=== PATIENT | female | born 1945 | race Caucasian/White ===

== ENCOUNTER → 2017-09-08 | Outpatient (CLI) | payer MEDICARE ==
[~2017-09-08] MED LIST: ALBU90OI61 INH; AMLO5 PO; ANTOXYBENA LEFTEAR; ASCO500 PO; ASPI81CH PO; ATEN100 PO; ATEN50 PO; Aspir-Low81 MG PO; Ativan1 MG PO; BUPR150ER PO; BUPR150ERA PO; CIPR500 PO; CITA20 PO; D3-20002000 UNIT PO; DOCU100 PO; ESTNOR PO; ESTR2 PO; FOLI400 PO; HYDMOR4 PO; HYDR1TAB94 PO; HYOS.125 SL; Hydrocodone-Ap1 EA23 PO; IBUP400 PO; IRON159 MG PO; LEVSOD100 PO; LIDO2L TOP; LORA.5 PO; MIRT15 PO; Nitrostat0.4 MG SL; OMEP20ER PO; OMEPRAZOLE MAGN20 MG PO; OXYB5ER PO; Therems-M1 EACH PO; Zithromax250 MG PO
== END ==
LOC: LAB SHORT 14:15
DX: N39.0 Urinary tract infection, site not specified (principal)
CPT/HCPCS: 87086

== ENCOUNTER 2017-09-23 12:46 | Day surgery (SDC) | payer MEDICARE ==
[~2017-09-23] VITALS: Ht 165.1 cm; Wt 69.7 kg
[~2017-09-23 12:46] MED LIST changes: -IRON159 MG PO; -MIRT15 PO
[2018-04-12] MEDS ORDERED: MIRT15 PO (15:27)
== END 2017-09-23 17:18 | disposition home or self-care (01) ==
LOC: ORSCSDS 12:46
PROVIDERS: Podiatrist
PROC: 0SNQ0ZZ Release Left Toe Phalangeal Joint, Open Approach (ICD-10-PCS; principal; 2017-09-23 14:15)
PROC: 0QSP04Z Reposition Left Metatarsal with Internal Fixation Device, Open Approach (ICD-10-PCS; principal; 2017-09-23 14:15)
DX: M20.12 Hallux valgus (acquired), left foot (principal); M20.42 Other hammer toe(s) (acquired), left foot; I10 Essential (primary) hypertension; I25.10 Atherosclerotic heart disease of native coronary artery without angina pectoris; E03.9 Hypothyroidism, unspecified; F17.210 Nicotine dependence, cigarettes, uncomplicated; Z79.899 Other long term (current) drug therapy; Z79.82 Long term (current) use of aspirin
CPT/HCPCS: C1713; J1100; J1885; J2250; J2405; J3010; J7120

== ENCOUNTER 2018-04-11 13:28 | Emergency (ER) | payer MEDICARE ==
[~2018-04-11] VITALS: Ht 162.6 cm; Wt 76.2 kg
[2018-04-11 14:32] LABS: Alanine Aminotransfer (ALT/SGP 13 U/L (12-78); Albumin, Blood 2.4 g/dL (3.4-5.0); Albumin/Globulin Ratio 0.8 (0.8-1.8); Alk Phos 42 U/L (50-136); Anion Gap 5 mmol/L (6-16); Aspartate Aminotrans (AST/SGOT 20 U/L (12-37); Bilirubin, Total 0.3 mg/dL (0.1-1.0); Blood Urea Nitrogen 17 mg/dL (8-24); Bun/Creatinine Ratio 17.6 (12.0-20.0); CO2, Blood 23 mmol/L (21-32); Calcium, Blood 6.9 mg/dL (8.5-10.1); Chloride, Blood 115 mmol/L (98-108); Creatinine, Blood 0.97 mg/dL (0.40-1.00); Globulin, Blood 3.1 g/dL (2.2-4.0); Glomerular Filtration Rate >60 (60-); Glucose, Blood 66 mg/dL (70-99); Potassium, Blood 4.3 mmol/L (3.5-5.5); Sodium, Blood 143 mmol/L (136-145); Total Protein, Blood 5.5 g/dL (6.4-8.2); Troponin I <0.015 ng/mL (0.000-0.040)
[2018-04-11 14:37] LABS: BASOPHILS ABSOLUTE AUTO 0.06 K/mm3 (0.00-0.23); BASOPHILS PERCENT AUTO 1 % (0-2); EOSINOPHILS ABSOLUTE AUTO 0.08 K/mm3 (0.00-0.68); EOSINOPHILS PERCENT AUTO 2 % (0-6); Hematocrit 26.5 % (33.0-51.0); Hemoglobin 8.3 g/dL (11.5-16.0); IMMATURE GRAN ABSOLUTE AUTO 0.01 K/mm3 (0.00-0.10); IMMATURE GRAN PERCENT AUTO 0 % (0-1); LYMPHOCYTES ABSOLUTE AUTO 1.69 K/mm3 (0.84-5.20); LYMPHOCYTES PERCENT AUTO 38 % (21-46); MONOCYTES ABSOLUTE AUTO 0.69 K/mm3 (0.16-1.47); MONOCYTES PERCENT AUTO 15 % (4-13); Mean Corpuscular HGB 26.3 pg (26.0-34.0); Mean Corpuscular HGB Conc 31.3 g/dL (31.5-36.5); Mean Corpuscular Volume 84 fL (80-100); Mean Platelet Volume 10.6 fL (9.1-12.4); NEUTROPHILS ABSOLUTE AUTO 1.96 K/mm3 (1.96-9.15); NEUTROPHILS PERCENT AUTO 44 % (41-73); Platelet Count 210 K/mm3 (150-400); RDW Coefficient Variation 16.4 % (11.7-14.2); RDW Standard Deviation 50.8 fL (35.1-46.3); Red Blood Cell Count 3.15 M/mm3 (3.80-5.20); White Blood Cell Count 4.49 K/mm3 (4.00-11.30)
[2018-04-11] MEDS ORDERED: IRON159 MG PO (15:15)
[2018-04-11 15:32] LABS: Percent Saturation 8.2 % (15.0-50.0)
[2018-04-12] MEDS ORDERED: MIRT15 PO (15:27)
== END 2018-04-11 15:44 | disposition home or self-care (01) ==
LOC: ER 13:28
PROVIDERS: Emergency Medicine
DX: D64.9 Anemia, unspecified (principal); I10 Essential (primary) hypertension; E03.9 Hypothyroidism, unspecified; J44.9 Chronic obstructive pulmonary disease, unspecified; F17.210 Nicotine dependence, cigarettes, uncomplicated; Z79.899 Other long term (current) drug therapy
CPT/HCPCS: 71046; 80053; 82272; 82607; 82728; 82746; 83540; 83550; 84484; 85025; 93005; 93010; 99284-25

== ENCOUNTER → 2018-08-10 | Outpatient (CLI) | payer MEDICARE ==
[~2018-08-10] MED LIST changes: +IRON159 MG PO; +MIRT15 PO
== END | disposition home or self-care (01) ==
LOC: LAB SRC 16:30 → LAB SHORT 16:30
DX: N39.0 Urinary tract infection, site not specified (principal)
CPT/HCPCS: 87086

== ENCOUNTER → 2018-10-10 | Outpatient (CLI) | payer MEDICARE | END | disposition home or self-care (01) | LOC: LAB SHORT 17:52 → LAB 17:52 | DX: R35.0 Frequency of micturition (principal); R30.9 Painful micturition, unspecified; M54.5 Low back pain | CPT/HCPCS: 87086 ==

== ENCOUNTER 2018-10-29 14:23 | Inpatient (IN) | payer MEDICARE ==
[~2018-10-29] VITALS: Ht 160 cm; Wt 68.7 kg
[2018-10-29 15:25] LABS: BASOPHILS ABSOLUTE AUTO 0.04 K/mm3 (0.00-0.23); BASOPHILS PERCENT AUTO 1 % (0-2); EOSINOPHILS ABSOLUTE AUTO 0.11 K/mm3 (0.00-0.68); EOSINOPHILS PERCENT AUTO 2 % (0-6); Hematocrit 36.2 % (33.0-51.0); Hemoglobin 11.6 g/dL (11.5-16.0); IMMATURE GRAN ABSOLUTE AUTO 0.01 K/mm3 (0.00-0.10); IMMATURE GRAN PERCENT AUTO 0 % (0-1); LYMPHOCYTES ABSOLUTE AUTO 1.17 K/mm3 (0.84-5.20); LYMPHOCYTES PERCENT AUTO 25 % (21-46); MONOCYTES ABSOLUTE AUTO 0.91 K/mm3 (0.16-1.47); MONOCYTES PERCENT AUTO 19 % (4-13); Mean Corpuscular HGB 29.9 pg (26.0-34.0); Mean Corpuscular Volume 93 fL (80-100); Mean Platelet Volume 9.8 fL (9.1-12.4); NEUTROPHILS ABSOLUTE AUTO 2.48 K/mm3 (1.96-9.15); NEUTROPHILS PERCENT AUTO 53 % (41-73); Platelet Count 226 K/mm3 (150-400); RDW Coefficient Variation 14.7 % (11.7-14.2); Red Blood Cell Count 3.88 M/mm3 (3.80-5.20); White Blood Cell Count 4.72 K/mm3 (4.00-11.30)
[2018-10-29 15:46] LABS: Alanine Aminotransfer (ALT/SGP 14 U/L (12-78); Albumin, Blood 3.2 g/dL (3.4-5.0); Albumin/Globulin Ratio 1.1 (0.8-1.8); Alk Phos 51 U/L (50-136); Anion Gap 3 mmol/L (6-16); Aspartate Aminotrans (AST/SGOT 10 U/L (12-37); Bilirubin, Total 0.3 mg/dL (0.1-1.0); Blood Urea Nitrogen 15 mg/dL (8-24); Bun/Creatinine Ratio 17.3 (12.0-20.0); CO2, Blood 29 mmol/L (21-32); Calcium, Blood 8.8 mg/dL (8.5-10.1); Chloride, Blood 104 mmol/L (98-108); Creatinine, Blood 0.87 mg/dL (0.40-1.00); Glomerular Filtration Rate >60 (60-); Glucose, Blood 82 mg/dL (70-99); Potassium, Blood 4.6 mmol/L (3.5-5.5); Sodium, Blood 136 mmol/L (136-145); Total Protein, Blood 6.2 g/dL (6.4-8.2)
[2018-10-29 15:57] LABS: Influenza A Negative (NEGATIVE); Influenza B Negative (NEGATIVE)
[2018-10-29] MEDS ORDERED: ALBU90OI6 INH (15:57)
[2018-10-29] MEDS ORDERED: Hydrocodone-Ap1 EA23 PO (15:57)
[2018-10-29] MEDS ORDERED: LAMO25 PO (15:58)
[2018-10-29] MEDS ORDERED: LORA.5 PO (15:58)
[2018-10-30 02:27] LABS: Adenovirus Not Detected (NOT DETECT); Bordetella pertussis Not Detected (NOT DETECT); Chlamydophila pneumoniae Not Detected (NOT DETECT); Coronavirus 229E Not Detected (NOT DETECT); Coronavirus HKU1 Not Detected (NOT DETECT); Coronavirus NL63 Not Detected (NOT DETECT); Coronavirus OC43 Not Detected (NOT DETECT); Human Metapneumovirus Detected (NOT DETECT); Human Rhinovirus/Enterovirus Not Detected (NOT DETECT); Influenza A Not Detected (NOT DETECT); Influenza A/2009-H1 Not Detected (NOT DETECT); Influenza A/H1 Not Detected (NOT DETECT); Influenza A/H3 Not Detected (NOT DETECT); Influenza B Not Detected (NOT DETECT); Mycoplasma pneumoniae Not Detected (NOT DETECT); Parainfluenza Virus 1 Not Detected (NOT DETECT); Parainfluenza Virus 2 Not Detected (NOT DETECT); Parainfluenza Virus 3 Not Detected (NOT DETECT); Parainfluenza Virus 4 Not Detected (NOT DETECT); Respiratory Syncytial Virus Not Detected (NOT DETECT)
--- NOTE | 2018-10-30 04:24 | NUR ---
NOC SHIFT SUMMARY PT WAS ATMITTED THIS NIGHT FOR ACUTE ON CHRONIC RESP FAILURE AND COPD EXACERBATION. SHE IS ALSO POSITIVE FOR HUMAN METAPNEUMOVIRUS. ON TELE, SR PER PHOTO LAB SPECIALIST. SHE HAS HAD SOME ACTIVITY INTOLERANCE WITH SOB WHICH RESOLVED WITH REST AND A BREATHING TREATMENT. HAD HEADACHE TREATED WITH TYLENOL AND NORCO. HEADACHE CONTINUED AND CALLED TO HOSPITALIST FOR ADDITIONAL MEDICATON, WAS RX'D TRAMADOL. PT CURRENTLY SLEEPING AND ROUSES EASILY TO VOICE. APPEARS IN NO ACUTE DISTRESS. WILL CONTINUE TO MONITOR.
[2018-10-30 04:50] LABS: BASOPHILS ABSOLUTE AUTO 0.01 K/mm3 (0.00-0.23); BASOPHILS PERCENT AUTO 0 % (0-2); EOSINOPHILS PERCENT AUTO 0 % (0-6); Hematocrit 36.3 % (33.0-51.0); Hemoglobin 11.7 g/dL (11.5-16.0); IMMATURE GRAN ABSOLUTE AUTO 0.02 K/mm3 (0.00-0.10); IMMATURE GRAN PERCENT AUTO 1 % (0-1); LYMPHOCYTES ABSOLUTE AUTO 0.49 K/mm3 (0.84-5.20); LYMPHOCYTES PERCENT AUTO 12 % (21-46); MONOCYTES ABSOLUTE AUTO 0.09 K/mm3 (0.16-1.47); MONOCYTES PERCENT AUTO 2 % (4-13); Mean Corpuscular HGB 29.6 pg (26.0-34.0); Mean Corpuscular HGB Conc 32.2 g/dL (31.5-36.5); Mean Corpuscular Volume 92 fL (80-100); Mean Platelet Volume 9.9 fL (9.1-12.4); NEUTROPHILS ABSOLUTE AUTO 3.42 K/mm3 (1.96-9.15); NEUTROPHILS PERCENT AUTO 85 % (41-73); Platelet Count 229 K/mm3 (150-400); RDW Coefficient Variation 14.5 % (11.7-14.2); RDW Standard Deviation 49.3 fL (35.1-46.3); Red Blood Cell Count 3.95 M/mm3 (3.80-5.20); White Blood Cell Count 4.03 K/mm3 (4.00-11.30)
[2018-10-30 05:14] LABS: Anion Gap 9 mmol/L (6-16); Blood Urea Nitrogen 16 mg/dL (8-24); Bun/Creatinine Ratio 21.3 (12.0-20.0); CO2, Blood 24 mmol/L (21-32); Calcium, Blood 8.6 mg/dL (8.5-10.1); Chloride, Blood 102 mmol/L (98-108); Creatinine, Blood 0.75 mg/dL (0.40-1.00); Glomerular Filtration Rate >60 (60-); Glucose, Blood 169 mg/dL (70-99); Potassium, Blood 4.4 mmol/L (3.5-5.5); Sodium, Blood 135 mmol/L (136-145)
[2018-10-30 05:17] LABS: Thyroid Stimulating Hormone 0.297 uIU/mL (0.360-4.800)
--- NOTE | 2018-10-30 07:35 | NUR ---
PT ISOLATION ORDER CHANGED PT PLACED IN DROPLET/CONTACT PRECAUTIONS. DID RESEARCH ON HUMAN METAPNEUMOVIRUS. PROVIDED HARDCOPY EDUCATION TO PT. SPREADS LIKE FLU/COLD VIRUS: COUGHING, SPUTUM, AIRBORNE. PT HAS BEEN CHANGED IN COMPUTER TO DROPLET ISOLATION OF 0730 HRS, CHARGE INFORMED
--- NOTE | 2018-10-30 10:50 | NUR ---
DR FLOOD ON PT HOSPITALIST ASSESSED PT AND ORDERED A HOME O2 EVALUATION FOR COPD/WHEEZING. POSSIBLE DISCHARGE TOMORROW MORNING. PT WHEEZING AND COUGH IS PRESENT. CALLED RESPIRATORY THERAPIST FOR A TX.
--- NOTE | 2018-10-30 19:14 | NUR ---
SHIFT SUMMARY 73 YR OLD FEMALE ADMITTED FOR HYPOXIA/RESPIRATORY FAILURE. FULL CODE. PT WOULD HAVE DC'D TODAY BUT THE HOSPITALIST FOUND HER TO BE WHEEZING. HE WILL LIKELY DC PT TOMORROW. SHE LIVES AT HOME W/. CARDIAC DIET. IN DROPLET PRECAUTIONS FOR HUMAN METAPNEUMOVIRUS. FAYE BURR FOR DVT PROPHYLAXIS. PT PROVIDED W/PT EDUCATION ON HER DIAGNOSES TODAY. SHE NEEDS A HOME O2 EVAL BEFORE DC. SHE DOES NOT APPEAR TO HAVE AN ISSUE WITH SWALLOWING TO ME. I HAD NO EXTRA TIME TO INVESTIGATE THE REASONS FOR THE DYSPHAGIA PRECAUTIONS. SHE IS ON ROOM AIR BUT CAN HAVE O2 NEEDED AND RESPIRATORY TX.
[2018-10-31 06:48] LABS: BASOPHILS ABSOLUTE AUTO 0.01 K/mm3 (0.00-0.23); BASOPHILS PERCENT AUTO 0 % (0-2); EOSINOPHILS PERCENT AUTO 0 % (0-6); Hematocrit 35.5 % (33.0-51.0); Hemoglobin 11.6 g/dL (11.5-16.0); IMMATURE GRAN ABSOLUTE AUTO 0.06 K/mm3 (0.00-0.10); IMMATURE GRAN PERCENT AUTO 1 % (0-1); LYMPHOCYTES ABSOLUTE AUTO 0.93 K/mm3 (0.84-5.20); LYMPHOCYTES PERCENT AUTO 8 % (21-46); MONOCYTES PERCENT AUTO 5 % (4-13); Mean Corpuscular HGB 29.9 pg (26.0-34.0); Mean Corpuscular HGB Conc 32.7 g/dL (31.5-36.5); Mean Corpuscular Volume 92 fL (80-100); NEUTROPHILS ABSOLUTE AUTO 10.75 K/mm3 (1.96-9.15); NEUTROPHILS PERCENT AUTO 87 % (41-73); Platelet Count 253 K/mm3 (150-400); RDW Coefficient Variation 14.6 % (11.7-14.2); RDW Standard Deviation 49.7 fL (35.1-46.3); Red Blood Cell Count 3.88 M/mm3 (3.80-5.20); White Blood Cell Count 12.35 K/mm3 (4.00-11.30)
[2018-10-31 07:15] LABS: Anion Gap 6 mmol/L (6-16); Blood Urea Nitrogen 17 mg/dL (8-24); CO2, Blood 25 mmol/L (21-32); Calcium, Blood 8.8 mg/dL (8.5-10.1); Chloride, Blood 102 mmol/L (98-108); Creatinine, Blood 0.81 mg/dL (0.40-1.00); Glomerular Filtration Rate >60 (60-); Glucose, Blood 134 mg/dL (70-99); Potassium, Blood 4.4 mmol/L (3.5-5.5); Sodium, Blood 133 mmol/L (136-145)
--- NOTE | 2018-10-31 07:23 | NUR ---
NOC SHIFT SUMMARY PT HAS BEEN PLEASANT AND COOPERATIVE WITH CARE THIS NIGHT. HAD A HEADACHE EARLY IN THE EVENING, TREATED PER EMAR. TEST POSITIVE FOR HUMAN METAPNEUMOVIRUS, RESP HAVE BEEN EVEN AND UNLABORED THIS NIGHT AND VSS. LUNGS SOUNDS WHEEZY ON EXPIRATION THROUGHOUT. IN ROOM. NO ACUTE CHANGES NOTED THIS NIGHT. PT APPEARS I NO ACUTE DISTRESS. REPORT TO ONCOMING RN.
--- NOTE | 2018-10-31 11:57 | NUR ---
DISCHARGE PT STATE CONTINUING WEAKNESS/FATIGUE, SHORTNESS OF BREATH W EXERTION HOWEVER STATES SYMPTOMS IMPROVING, HOPEFUL FOR D/C TODAY. ISTRATE IN TO SEE HER STATE SHE MAY GO HOME TODAY, PLACE D/C ORDERS.[employer] PROCESS ORDERS, FAX TO [facility] FOR NEW SCRIPTS/REQUEST, ARRANGE F/U APPTS. IV D/C INTACT. D/C INSTRUCT REVIEWED WT PT & . W/C ESCORT FROM HOSP PROVIDED.
[2018-10-31] MEDS ORDERED: ATEN100 PO (12:00)
[2018-10-31] MEDS ORDERED: Acetaminophen325 M1 PO (12:07)
[2018-10-31] MEDS ORDERED: BISA10S PR (12:08)
[2018-10-31] MEDS ORDERED: LEVOFLOXACIN750 MG PO (12:09)
[2018-10-31] MEDS ORDERED: METPRE4 PO (12:10)
[2018-10-31] MEDS ORDERED: ONDA4ODT MM (12:11)
[2018-10-31] MEDS ORDERED: NICO21TP TOP (12:11)
[2018-10-31] MEDS ORDERED: SACC250C PO (12:12)
== END 2018-10-31 13:10 | disposition home or self-care (01) | DRG 189 ==
LOC: ER 14:23 → MEDS 17:46 → ER 17:46 → MEDS 17:46 → ENPENDDIS 10-31 10:51 → MEDS 10-31 13:10
PROVIDERS: Internal Medicine; Physician Assistant; ADMIT Family Medicine
DX: J96.21 Acute and chronic respiratory failure with hypoxia (principal); S06.0X9A Concussion with loss of consciousness of unspecified duration, initial encounter; J44.1 Chronic obstructive pulmonary disease with (acute) exacerbation; J44.0 Chronic obstructive pulmonary disease with (acute) lower respiratory infection; F32.9 Major depressive disorder, single episode, unspecified; F41.9 Anxiety disorder, unspecified; K21.9 Gastro-esophageal reflux disease without esophagitis; F17.210 Nicotine dependence, cigarettes, uncomplicated; J96.22 Acute and chronic respiratory failure with hypercapnia; E03.9 Hypothyroidism, unspecified; I12.9 Hypertensive chronic kidney disease with stage 1 through stage 4 chronic kidney disease, or unspecified chronic kidney disease; N18.3 Chronic kidney disease, stage 3 (moderate); R00.0 Tachycardia, unspecified
CPT/HCPCS: 36415; 71046; 80048; 80053; 83605; 84145; 84443; 85025; 87486; 87581; 87633; 87798; 87804; 93005; 93010; 94640; 94644; 94760; 94761; 96361; 96365; 96366; 96372; 96374; 96375; 96376; 99285-25; A9270-GY; G0378; J1650; J1956; J2920; J2930; J7030; J7120

== ENCOUNTER → 2019-03-20 | Outpatient (CLI) | payer MEDICARE ==
[~2019-03-20] MED LIST changes: +ALBU90OI6 INH; +Acetaminophen325 M1 PO; +BISA10S PR; +LAMO25 PO; +LEVOFLOXACIN750 MG PO; +METPRE4 PO; +NICO21TP TOP; +ONDA4ODT MM; +SACC250C PO
== END | disposition home or self-care (01) ==
LOC: PLD 07:53 → LAB SHORT 07:53
DX: L57.0 Actinic keratosis (principal)
CPT/HCPCS: 88305

== ENCOUNTER 2019-05-24 17:38 | Emergency (ER) | payer MEDICARE ==
[~2019-05-24] VITALS: Ht 165.1 cm; Wt 74.8 kg
[2019-05-24 18:48] LABS: Influenza A Negative (NEGATIVE); Influenza B Negative (NEGATIVE)
[2019-05-24] MEDS ORDERED: BUPR150T2 PO (18:49)
[2019-05-24] MEDS ORDERED: Mucinex600 MG PO (18:55)
== END 2019-05-24 19:07 | disposition home or self-care (01) ==
LOC: ER 17:38
PROVIDERS: Physician Assistant
DX: R05 Cough (principal); T46.4X5A Adverse effect of angiotensin-converting-enzyme inhibitors, initial encounter; Z88.8 Allergy status to other drugs, medicaments and biological substances; Z88.2 Allergy status to sulfonamides; Z88.1 Allergy status to other antibiotic agents; Z88.0 Allergy status to penicillin; Z79.899 Other long term (current) drug therapy; I10 Essential (primary) hypertension; Z87.891 Personal history of nicotine dependence
CPT/HCPCS: 71046; 87804; 99283-25

== ENCOUNTER → 2019-09-21 | Outpatient (CLI) | payer MEDICARE ==
[~2019-09-21] MED LIST changes: +BUPR150T2 PO; +Mucinex600 MG PO
== END | disposition home or self-care (01) ==
LOC: OLS 13:23 → LAB SHORT 13:23
DX: R31.9 Hematuria, unspecified (principal)
CPT/HCPCS: 87086; 88108